=== PATIENT | female | born 1945 | race Caucasian/White ===

== ENCOUNTER 2020-12-08 18:42 | Emergency (ER) | payer OTHER ==
[~2020-12-08] VITALS: Ht 157.5 cm; Wt 81.8 kg
[2020-12-08 18:47] VITALS: Ht 157.5 cm; Wt 81.8 kg
[2020-12-08] MEDS ORDERED: HYDROCODON-ACE1 EAC7 PO (19:44)
[2020-12-08 20:10] VITALS: BP 132/76
== END 2020-12-08 21:03 | disposition home or self-care (01) ==
LOC: D.ER 18:42
DX: S91.201A Unspecified open wound of right great toe with damage to nail, initial encounter (principal); W19.XXXA Unspecified fall, initial encounter; Y93.9 Activity, unspecified; Y92.9 Unspecified place or not applicable; I10 Essential (primary) hypertension; F03.90 Unspecified dementia, unspecified severity, without behavioral disturbance, psychotic disturbance, mood disturbance, and anxiety